=== PATIENT | female | born 1980 | race African-American/Black ===

== ENCOUNTER 2019-06-05 08:10 | Day surgery (SDC) | payer OTHER ==
--- NOTE | 2019-06-01 12:00 | HP ---
She is scheduled for surgery on 06/05/2019. HISTORY OF PRESENT ILLNESS: Ms. Jorgensen is a 39-year-old female, G4, P3, A1, who has been having increasingly heavy menstrual bleeding. She saturates a maxi pad or super tampon in less than an hour on her heavy days. She has been on non-steroidals with minimal improvement of her symptoms. She has had a tubal ligation, procured form of contraception. She had an ultrasound for the heavy menstrual bleeding that showed her uterus to be enlarged with multiple uterine fibroids, mainly in the endometrial cavity consistent with submucosal location. She is up to date with Pap smear screening, which was normal. She has had documented anemia due to menorrhagia on recent CBC in my office in April with a hemoglobin of 8.9. She has been initiated on iron therapy for this. Ultrasound performed on 04/26/2019, official report showed the uterus to be enlarged, 12.6 x 6.7 x 7.1 cm with endometrial thickness of 12.3 mm. Right and left ovaries were normal in appearance. She had posterior fibroid measuring 4 x 4.8 x 4.6 cm that was intramural encroaching onto the submucosal region. SOCIAL HISTORY: Nonsmoker. No excessive alcohol use. PAST MEDICAL HISTORY: Knee pain from some DJD, onset was recently. PAST SURGICAL HISTORY: Laparoscopic cholecystectomy and BTL in the past. CURRENT MEDICATIONS: Meloxicam 15 mg tablet one daily for pain. FAMILY HISTORY: Hypertension, diabetes. OBSTETRICAL HISTORY: She is G4, P3, A1. Three vaginal deliveries. ASSESSMENT: This is a 39-year-old female, G4, P3, A1, with symptomatic uterine fibroids with apparently submucosal 4-cm intramural submucosal fibroid causing menorrhagia with noted anemia due to the heavy flow. She is desiring definitive surgical therapy. PLAN: For robotic total laparoscopic hysterectomy with bilateral salpingectomy. Risks and benefits of procedure had been discussed in detail and set for surgery on 06/05. Job ID: [id number]
[2019-06-01 15:07] VITALS: BMI 44.1
[2019-06-01 15:51] LABS: Hemoglobin 11.7 g/dL (12.0-16.0); Mean Corpuscular HGB CONC 31.2 g/dL (32.0-36.0); Mean Corpuscular Hemoglobin 23.3 pg (27.0-31.0); Mean Corpuscular Volume 74.8 fL (78.0-98.0); Mean Platelet Volume 8.7 fL (7.4-10.4); Platelet Count 332 thou/uL (130-400); RBC Distribution Width 22.3 % (11.5-14.5); Red Blood Cell (RBC) Count 5.02 mill/uL (4.20-5.40); White Blood Cell (WBC) Count 8.8 thou/uL (4.8-10.8)
[2019-06-01 15:59] LABS: BHCG - Serum Negative (NEGATIVE); Pregs Control Background? CLEAR/WHITE (CLR/WHITE); Pregs Control Bar Appear? YES (CONTROL BAR)
[2019-06-05] MEDS ORDERED: Bupivacaine/Epinephrine 0.5% 10 ML VIAL ONE (09:24)
[2019-06-05] MEDS ORDERED: Gabapentin 300 MG CAP ONE (09:24)
[2019-06-05] MEDS ORDERED: CeleCOXIB 100 MG CAP ONE (09:24)
[2019-06-05] MEDS ORDERED: Famotidine/PF 20 mg/2ml Vial ONE (09:25)
[2019-06-05] MEDS ORDERED: PROPOFOL 200 MG/20 ML VIAL ONE (09:37)
[2019-06-05] MEDS ORDERED: Rocuronium Bromide 10 MG/ML (10ML VIAL) ONE (09:37)
[2019-06-05] MEDS ORDERED: Lidocaine 1% PF 5 ML VIAL ONE (09:37)
[2019-06-05] MEDS ORDERED: Ondansetron PF 4 MG/2 ML Vial ONE (09:37)
[2019-06-05] MEDS ORDERED: Dexamethasone 20 MG/5 ML VIAL ONE (09:37)
[2019-06-05] MEDS ORDERED: Glycopyrrolate 0.2 MG/ML 5 ML SYRINGE ONE (09:37)
[2019-06-05] MEDS ORDERED: Fentanyl 100 MCG/2 ML VIAL ONE ×5 (09:53→13:40)
[2019-06-05] MEDS ORDERED: Midazolam HCl 2 mg/2 ml Vial ONE (09:53)
[2019-06-05] MEDS ORDERED: diphenhydrAMINE 25 MG CAP PO PRN (12:19)
[2019-06-05] MEDS ORDERED: Simethicone Chewable 80 MG TAB PO PRN (12:19)
[2019-06-05] MEDS ORDERED: Ondansetron PF 4 MG/2 ML Vial IVP PRN (12:19)
[2019-06-05] MEDS ORDERED: traMADol HCl 50 MG TAB PO PRN (12:19)
[2019-06-05] MEDS ORDERED: Bisacodyl 10 MG SUPP PR PRN (12:19)
[2019-06-05] MEDS ORDERED: Morphine 4 MG/ML VIAL SLOW IVP PRN (12:19)
[2019-06-05] MEDS ORDERED: Zolpidem Tartrate 5 MG TAB PO PRN (12:19)
[2019-06-05] MEDS ORDERED: Promethazine HCl 25 MG/ML VIAL IM PRN (12:19)
--- NOTE | 2019-06-05 14:52 | OP ---
DATE OF PROCEDURE: 06/05/2019 PREOPERATIVE DIAGNOSES: A 39-year-old female with symptomatic uterine fibroids with menorrhagia and undocumented anemia. POSTOPERATIVE DIAGNOSES: A 39-year-old female with symptomatic uterine fibroids with menorrhagia and undocumented anemia, presumed clinical adenomyosis, and pelvic adhesive disease PROCEDURES PERFORMED: 1. Robotic total laparoscopic hysterectomy with bilateral salpingectomy. 2. Lysis of adhesions. CASINO ACCOUNTANT SURGEON: Mildred Locke PA-C ANESTHESIA: General endotracheal. ESTIMATED BLOOD LOSS: 50 mL. COMPLICATIONS: None. COUNTS: Correct x2. ANTIBIOTICS: 2 g Ancef, on-call to OR. PATHOLOGY: Uterus, cervix, and bilateral fallopian tubes. FINDINGS: 1. Globularly enlarged uterus approximately 12 weeks size with posterior intramural submucosal fibroid noted. 2. Filmy pelvic adhesions, bilateral adnexa noted status post lysis of adhesions. 3. Clear urine present in Garcia catheter postprocedure and bladder was watertight to distention over 300 mL postprocedure. DISPOSITION: Recovery room, stable. DESCRIPTION OF OPERATIVE PROCEDURE: The patient previously received informed consent in regard to surgery. She was taken back to the operating room, where she received a general endotracheal anesthetic agent without complications. She was placed in dorsal lithotomy position with the use of Luke stirrups, prepped and draped in usual sterile fashion. A Garcia catheter was placed at this time. A side-arm speculum was placed in the vagina. Anterior lip of the cervix was grasped with a single-tooth tenaculum. The uterus sounded to 13 cm. A size 12 cm ARJUN uterine manipulator with a 4.0 cm cervical cup was placed in usual fashion. Tenaculum and speculum were removed. Attention was then turned to the abdomen, where perspective trocar sites were infiltrated with 0.5% Marcaine with epinephrine. A 12 mm supraumbilical incision was made. Veress needle was entered in the peritoneal cavity. The patient's pressure was appropriately less than 5 mmHg and the abdomen was then insufflated with the patient's pressure of 15 approximately 5 L of carbon dioxide gas. Veress needle was then removed. A 12 mm trocar was then placed through the supraumbilical incision and the laparoscope was then introduced through the trocar sleeve confirming proper entry. At this time, additional bilateral lower quadrant 8 mm trocars were placed under laparoscopic guidance along with the right upper quadrant property assistant port size 11 mm. The patient was placed in Trendelenburg position and the robot was docked in usual fashion. I then broke the scrub and proceeded to carry out the surgery from the operative console while my assistants remained at the bedside. The uterus was elevated by my property assistant. The left adnexa were loosened from the posterior cul-de-sac through the filmy adhesions with monopolar scissors and bipolar fenestrated cautery freeing the ovary from the pelvic sidewall and also posterior cul-de-sac. We then grasped the fimbria of the left fallopian tube. In the mesosalpinx, a window was created allowing for coagulation along the mesosalpinx removing the left fallopian tube through the right upper quadrant port. Then given the ligaments were coagulated and transected and continued to do this taking close to uterine specimen until left round ligament was reached. It was coagulated and transected and the anterior leaf of the broad ligament was entered. The vesicouterine peritoneum was incised in a layering technique dropping the bladder safely past the cervical vaginal margin. The uterine vessels on the left side were then skeletonized and then, they were coagulated in the internal cervical os region. The right adnexal structure was then also cleared of some filmy adhesions in the posterior cul-de-sac. Both sharp and blunt dissection. We then coagulated the right fallopian tube and then, the fimbria and serial coagulation of the mesosalpinx with cautery and monopolar scissors removed the right fallopian tube through the right upper quadrant port. The right uterine ovarian ligament was again coagulated and transected and again serial coagulation of the broad ligament hugging close to the uterine specimen again was carried out to the right round ligament was reached. It was coagulated and transected and the anterior leaf of the broad ligament was entered and the vesicouterine peritoneal dissection continued in a layering technique dropping the bladder away past the cervical vaginal margin without difficulty. The right uterine vessels again were skeletonized and coagulated in the internal cervical os region. Due to the size of the uterus, we proceeded to attack the posterior colpotomy first. This started from 6 to 3 and 6 to 9 o'clock position. Then, the fundus was dropped down to the cul-de-sac and the anterior colpotomy was performed from 12 to 3 and 12 to 9 o'clock position. Careful attention to the coagulation of the vessels with the bipolar fenestrated cautery at the 3 and 9 o'clock position were meticulously during the incision to prohibit bleeding. Once there was one vessel that began to the uterine vessels, then did begin to bleed near the 3 o'clock position and I quickly switched out the monopolar scissor with the needle local intermodal truck driver and this allowed for me to grasp the vessel and then, carefully cauterize beneath the grasper with bipolar fenestrated cautery securing hemostasis. The needle local intermodal truck driver remained in-situ. We then delivered the specimen through the vaginal vault. Stratafix was then brought in by my property assistant. I closed the vaginal cuff full-thickness closure starting from the right vaginal angle during further left vaginal angle back towards the midline. The excess suture and needle were then removed from the right upper quadrant property assistant port. The pelvis was irrigated and suctioned. All pedicle sites were confirmed to be hemostatic. The bladder was distended was watertight to 300 mL plus the distention. Once we confirmed hemostasis. The robot was undocked, trocar sleeves were removed. I rescrubbed and then, I closed the supraumbilical fascial defect with a [id number] suture of 0 Vicryl. The remainder of the trocar sites were closed with 4-0 Monocryl suture in subcuticular fashion along with Dermabond. The vaginal sponge stick was performed confirming vaginal hemostasis. The patient was awakened from anesthesia, transferred to recovery room in stable condition. Job ID: [id number]
[2019-06-05] MEDS: Ketorolac Tromethamine 30 MG/ML VIAL IVP SCH (16:03)
[2019-06-05] MEDS: Acetaminophen 1,000 MG in Premix Bag 1 BAG IVPB SCH (18:40)
[2019-06-05] MEDS: traMADol HCl 50 MG TAB PO PRN (22:31)
[2019-06-05] MEDS: Sodium Chloride 0.9% 1,000 ML IV SCH ×2 (22:44)
[2019-06-06] MEDS: Ketorolac Tromethamine 30 MG/ML VIAL IVP SCH (02:36)
[2019-06-06] MEDS: Acetaminophen 1,000 MG in Premix Bag 1 BAG IVPB SCH ×3 (02:36→11:54)
[2019-06-06 05:15] LABS: Hemoglobin 10.3 g/dL (12.0-16.0); Mean Corpuscular HGB CONC 32.3 g/dL (32.0-36.0); Mean Corpuscular Hemoglobin 23.9 pg (27.0-31.0); Mean Platelet Volume 9.4 fL (7.4-10.4); Platelet Count 285 thou/uL (130-400); RBC Distribution Width 22.1 % (11.5-14.5); Red Blood Cell (RBC) Count 4.31 mill/uL (4.20-5.40); White Blood Cell (WBC) Count 15.4 thou/uL (4.8-10.8)
[2019-06-06] MEDS: Ibuprofen 800 MG TAB PO SCH ×2 (05:18→14:48)
[2019-06-06] MEDS: Sodium Chloride 0.9% 1,000 ML IV SCH ×2 (05:19→11:54)
--- NOTE | 2019-06-06 08:14 | PDOC.EVN ---
Event Note - Event Note Event Note: Tolerating diet. Ambulating. +Flatus. O:AFVSS. HCT 31.9%. u/o1800 ml. abdomen soft/non distended. trochar sites s/d/i.. A/P post op day 1 from robotic tlh. Doing well. Plan for discharge home. F/u 2 and 6 weeks.
[2019-06-06] MEDS: traMADol HCl 50 MG TAB PO PRN (08:54)
[2019-06-06] MEDS ORDERED: Cyanocobalamin (Vitamin B-12) 1,000 MCG TAB PO SCH (09:00)
[2019-06-06] MEDS ORDERED: Ferrous Sulfate 325 MG TAB PO SCH (09:00)
[2019-06-06 12:07] VITALS: BP 114/57; TEMP 98.2
--- NOTE | 2019-06-07 05:35 | DIS ---
DATE OF ADMISSION: 06/05/2019 DATE OF DISCHARGE: 06/06/2019 DIAGNOSES: 1. Menorrhagia with anemia. 2. History of uterine fibroids. 3. Pelvic adhesions. 4. Dysmenorrhea. PROCEDURES PERFORMED: Robotic TLH with bilateral salpingectomy, lysis of adhesions. SUMMARY OF HOSPITAL COURSE: Ms. Jorgensen is a 39-year-old female with heavy menstrual bleeding with documented anemia in the past of hematocrit 29%. She had a submucosal intramural 4 cm fibroid and findings also suggestive of adenomyosis with pelvic peritoneal adhesions and underwent a robotic TLH with bilateral salpingectomy on 06/05. Postoperatively, the patient has done well. Vital signs have remained stable. Hematocrit postop day #1 is 31.9%. She is tolerating regular diet, ambulating and voiding. She is also passing flatus postop day #1. Pathology is pending at time of discharge. She will have a followup in 2 and 6 weeks. Discharge medications will be Motrin 800 mg q.8 hours p.r.n. pain and tramadol 50 mg q.6 hours p.r.n. pain. Job ID: [id number]
== END 2019-06-06 15:35 | disposition home or self-care (01) ==
LOC: SDC 08:10 → 3SE 14:33 → SDC 06-06 15:35
PROVIDERS: ATTEND Obstetrics & Gynecology
DX: D25.0 Submucous leiomyoma of uterus (principal); D25.1 Intramural leiomyoma of uterus; N72 Inflammatory disease of cervix uteri; N73.6 Female pelvic peritoneal adhesions (postinfective); D50.0 Iron deficiency anemia secondary to blood loss (chronic); M17.9 Osteoarthritis of knee, unspecified; E66.9 Obesity, unspecified; Z68.41 Body mass index [BMI] 40.0-44.9, adult; Z79.1 Long term (current) use of non-steroidal anti-inflammatories (NSAID); Z79.899 Other long term (current) drug therapy
CPT/HCPCS: 36415; 84703; 85027; 86850; 86900; 86901; 88307; J0131; J0690; J1100; J1885; J2001; J2250; J2405; J2704; J3010; J3490; S0028

== ENCOUNTER 2022-09-10 19:26 | Emergency (ER) | payer OTHER, SELFPAY ==
[2022-09-10] MEDS ORDERED: Ketorolac Tromethamine 30 MG/ML VIAL ONE (20:43)
== END 2022-09-10 21:03 | disposition home or self-care (01) ==
LOC: ERS 19:26
DX: S16.1XXA Strain of muscle, fascia and tendon at neck level, initial encounter (principal); M25.552 Pain in left hip; M79.662 Pain in left lower leg; M25.511 Pain in right shoulder; V89.2XXA Person injured in unspecified motor-vehicle accident, traffic, initial encounter
CPT/HCPCS: 72125; 96372; J1885